=== PATIENT | female | born 1980 | race Caucasian/White ===

== ENCOUNTER 2023-03-03 09:00 | Outpatient (CLI) | payer BC ==
[2023-03-03 10:11] LABS: #Basophils 0.1 10x3/uL (0.0-0.2); #Eosinphils 0.2 10x3/uL (0.0-0.5); #Monocytes 0.5 10x3/uL (0.0-1.1); #Neutrophils 4.9 10x3/uL (1.5-8.4); %Basophils 0.8 % (0.0-2.0); %Lymphocytes 26.4 % (18.0-47.0); %Monocytes 6.7 % (0.0-10.0); %Neutrophils 63.8 % (40.0-75.0); Hemoglobin 13.6 g/dL (12.0-15.5); Mean Corpuscular HGB CONC 32.4 g/dL (32.0-36.0); Mean Corpuscular Hemoglobin 28.6 pg (27.0-33.0); Mean Corpuscular Volume 88.4 fl (81.6-98.3); Mean Platelet Volume 10.3 fl (7.4-10.4); Platelet Count 326 10x3/uL (150-450); RBC Distribution Width 12.7 % (11.5-14.5); Red Blood Cell (RBC) Count 4.75 10x6/uL (3.90-5.03); White Blood Cell (WBC) Count 7.6 10x3/uL (3.5-10.5)
== END 2023-03-03 09:01 | disposition home or self-care (01) ==
LOC: LABBT 09:00
PROVIDERS: ATTEND Orthopaedic Surgery Hand Surgery
DX: Z01.812 Encounter for preprocedural laboratory examination (principal); M72.0 Palmar fascial fibromatosis [Dupuytren]; S63.615A Unspecified sprain of left ring finger, initial encounter; S63.617A Unspecified sprain of left little finger, initial encounter
CPT/HCPCS: 85025

== ENCOUNTER 2023-03-05 07:30 | Day surgery (SDC) | payer BC ==
[2023-03-03 09:29] VITALS: BMI 26.5
[2023-03-05] MEDS ORDERED: Bupivacaine PF 0.5% 30 ML VIAL ONE (10:40)
[2023-03-05] MEDS ORDERED: Bacitracin Zinc Ointment 30 gm TUBE ONE (10:40)
[2023-03-05] MEDS ORDERED: Fentanyl 250 MCG/5 ML VIAL ONE (10:51)
[2023-03-05] MEDS ORDERED: Sodium Chloride 0.9% 100 ML ONE (10:52)
[2023-03-05] MEDS ORDERED: CEFAZOLIN 2 GM VIAL ONE (10:52)
[2023-03-05] MEDS ORDERED: Midazolam HCl 2 mg/2 ml Vial ONE (10:58)
[2023-03-05] MEDS ORDERED: fentaNYL 50 mcg/mL 1 mL Vial ONE (10:58)
[2023-03-05] MEDS ORDERED: PROPOFOL 200 MG/20 ML VIAL ONE (11:18)
[2023-03-05] MEDS ORDERED: Lidocaine 1% PF 5 ML VIAL ONE (11:18)
[2023-03-05] MEDS ORDERED: Dexamethasone 20 MG/5 ML VIAL ONE (11:18)
[2023-03-05] MEDS ORDERED: Ondansetron PF 4 MG/2 ML Vial ONE (11:18)
[2023-03-05] MEDS ORDERED: Ketorolac Tromethamine 30 MG/ML VIAL ONE (16:21)
[2023-03-05] MEDS ORDERED: HYDROcodone/Acetaminophen 5/325 mg Tablet ONE (16:46)
== END 2023-03-05 17:07 | disposition home or self-care (01) ==
LOC: SDC 07:30
PROVIDERS: ATTEND Orthopaedic Surgery Hand Surgery
PROC: 0JNK0ZZ Release Left Hand Subcutaneous Tissue and Fascia, Open Approach (ICD-10-PCS; principal; 2023-03-05)
PROC: 0RNX0ZZ Release Left Finger Phalangeal Joint, Open Approach (ICD-10-PCS; principal; 2023-03-05)
DX: M72.0 Palmar fascial fibromatosis [Dupuytren] (principal); S61.219A Laceration without foreign body of unspecified finger without damage to nail, initial encounter; S63.408A Traumatic rupture of unspecified ligament of other finger at metacarpophalangeal and interphalangeal joint, initial encounter; M77.9 Enthesopathy, unspecified; M72.2 Plantar fascial fibromatosis; M24.445 Recurrent dislocation, left finger; X58.XXXA Exposure to other specified factors, initial encounter
CPT/HCPCS: 88304; C1894; J1100; J1885; J2250; J2405; J2704; J3010; J3490; S0020